=== PATIENT | male | born 1975 | race Caucasian/White ===

== ENCOUNTER → 2019-05-21 | Outpatient (CLI) | payer BC ==
[2019-05-21 16:01] LABS: BASO # 0.2 10*3/uL (0.0-0.1); BASO % 1.8 % (0.0-1.0); EOS # 0.5 10*3/uL (0.0-0.4); EOS % 4.2 % (1.0-4.0); HEMATOCRIT 55.9 % (42.0-52.0); LYMPH # 3.6 10*3/uL (1.3-4.4); LYMPH % 30.5 % (27.0-41.0); MEAN CELL VOLUME 89.3 fl (80.0-94.0); MEAN CORPUSCULAR HGB 30.4 pg (27.0-31.0); MEAN PLATELET VOLUME 10.1 fl (9.6-12.3); MONO # 1.1 10*3/uL (0.1-1.0); NEUT # 6.4 10*3/uL (2.3-7.9); NEUT % 54.1 % (47.0-73.0); PLATELET COUNT AUTOMATED 259 10*3/uL (130-400); RED BLOOD COUNT 6.26 10*6/uL (4.50-5.90); RED CELL DISTRI WIDTH 13.4 % (0-14.5); WHITE BLOOD COUNT 11.8 10*3/uL (4.8-10.8)
== END | disposition home or self-care (01) ==
LOC: LAB 15:43
PROVIDERS: Family Medicine
DX: R05 Cough (principal); R61 Generalized hyperhidrosis; F17.200 Nicotine dependence, unspecified, uncomplicated

== ENCOUNTER → 2019-06-10 | Day surgery (SDC) | payer BC ==
[~2019-06-10] VITALS: Ht 170.1 cm; Wt 90.7 kg
[~2019-06-10] MED LIST: NORCO 5-325 TA1 EACH PO
--- NOTE | ~2019-06-10 | O ---
[place], [place] OPERATIVE NOTE [id number] UNIT #: [id number] ROOM: DOCTOR: TARAS MORALES MD BIRTHDATE: [birth year] DOS: 06/10/2019 PREOPERATIVE DIAGNOSIS: Bilateral elbow and forearm skin lesions. POSTOPERATIVE DIAGNOSIS: Bilateral elbow and forearm skin lesions. PROCEDURE: Excision of bilateral forearm and elbow skin lesion. SURGEON: Taras Morales MD MERCHANDISE MARKER: ROXY. ANESTHESIA: MAC with local. INDICATIONS: This is a 44-year-old male here for excision of bilateral elbow and forearm skin lesions. The procedure and its complications were explained to the patient in detail preoperatively. Complications that were discussed included but were not limited to bleeding, infection, hematoma/seroma/abscess formation, prolonged pain, and damage to lying vital structures. He agreed to proceed. DESCRIPTION OF PROCEDURE: After identifying the patient, the patient was brought to the operating suite and laid in the supine position. After time-out procedure was called, IV sedation was administered by the anesthesia team. The left side was tackled first. The area of the elbow and forearm where the lesions were located were adequately prepped and draped in the usual sterile fashion. An S-shaped incision was marked in the region of the elbow and local anesthesia was infiltrated in the line of the incision. Incision was made and deepened in layers with the help of electrocautery. The skin lesion was excised in its entirety and sent for histopathological diagnosis. Hemostasis was achieved with the help of electrocautery and the subcutaneous tissue was approximated with the help of 3-0 Vicryl in a running fashion. The skin edges were approximated with the help of 2-0 nylon in an interrupted fashion. The forearm lesion was tackled. Next, incision was marked and local anesthesia was infiltrated. Incision was made and deepened in layers until the lesion was identified and excised in its entirety with the help of electrocautery. It was sent for histopathological diagnosis. Hemostasis was achieved with the help of electrocautery and the subcutaneous tissue was approximated with the help of 3-0 Vicryl in an interrupted fashion and the edges of the skin were approximated with the help of 2-0 nylon in an interrupted fashion. The patient was then turned on the other side in order to tackle the lesions on the right elbow and right forearm. After the patient was prepped and draped in the usual sterile fashion. An elliptical incision was marked on both the lesions and local anesthesia was infiltrated. The incision was made and deepened in layers and the skin lesions in both the sites were excised in its entirety with the help of electrocautery and sent for histopathological diagnosis. Hemostasis was achieved with the help of electrocautery. Thereafter, the subcutaneous tissue in both the incisions were approximated with the help of 3-0 Vicryl in an interrupted fashion and the edges of the skin were approximated with the help of 2-0 nylon in an interrupted fashion as well. Dressing was placed. The patient [place], [place] OPERATIVE NOTE NAME: DANNY VANESSA UNIT #: [id number] ROOM: DOCTOR: TARAS MORALES MD BIRTHDATE: [birth year] tolerated the procedure well and was brought back to the recovery room in stable fashion. There were no complications. Dr. Taras Morales, the attending surgeon, was present throughout the operating case. Taras Morales MD CM:OPRECORD:OPERATIVE NOTE [id number] TARAS MORALES MD 06/10/19 1123 interface
[2019-06-10 08:44] VITALS: BP 132/97
[2019-06-10 10:14] VITALS: BP 122/72
[2019-06-10 10:29] VITALS: BP 133/102
[2019-06-10 10:44] VITALS: BP 130/88
== END | disposition home or self-care (01) ==
LOC: SDC 06-08 14:00
DX: L72.0 Epidermal cyst (principal); M06.321 Rheumatoid nodule, right elbow; M06.322 Rheumatoid nodule, left elbow; E66.9 Obesity, unspecified; Z68.31 Body mass index [BMI] 31.0-31.9, adult; Z87.891 Personal history of nicotine dependence; Z72.89 Other problems related to lifestyle

== ENCOUNTER 2019-06-22 19:39 | Emergency (ER) | payer BC ==
[~2019-06-22] VITALS: Ht 172.7 cm; Wt 92.1 kg
[2019-06-22] MEDS ORDERED: DOXYCYCLINE100 M3 PO (20:57)
== END 2019-06-22 21:12 | disposition home or self-care (01) ==
LOC: ED 19:39
DX: T81.30XA Disruption of wound, unspecified, initial encounter (principal); F17.200 Nicotine dependence, unspecified, uncomplicated; Y83.8 Other surgical procedures as the cause of abnormal reaction of the patient, or of later complication, without mention of misadventure at the time of the procedure; Y92.89 Other specified places as the place of occurrence of the external cause

== ENCOUNTER 2022-09-20 12:11 | Emergency (ER) | payer BC ==
[~2022-09-20] VITALS: Ht 175.2 cm; Wt 89.8 kg
[~2022-09-20 12:11] MED LIST changes: +DOXYCYCLINE100 M3 PO
[2022-09-20] MEDS ORDERED: HYDROCODONE-AC1 EAC1 PO (14:03)
[2022-09-20] MEDS ORDERED: Motrin,Rufen800 MG PO (14:03)
== END 2022-09-20 14:35 | disposition home or self-care (01) ==
LOC: ED 12:11
DX: S22.32XA Fracture of one rib, left side, initial encounter for closed fracture (principal); W17.81XA Fall down embankment (hill), initial encounter; Y93.89 Activity, other specified; Y92.89 Other specified places as the place of occurrence of the external cause; Y99.8 Other external cause status